=== PATIENT | female | born 1970 | race Caucasian/White ===

== ENCOUNTER 2022-10-06 06:37 | Emergency (ER) | payer OTHER ==
[2022-10-06] MEDS ORDERED: Lactated Ringers 1,000 ML IV ONE (08:07)
[2022-10-06] MEDS ORDERED: Sodium Chloride 0.9% 10 ML Syringe FLUSH PRN (08:07)
[2022-10-06] MEDS ORDERED: Prochlorperazine 10 MG/2 ML SDV IVPUSH ONE (08:08)
[2022-10-06] MEDS ORDERED: Dicyclomine 10 MG Cap PO ONE (08:08)
[2022-10-06] MEDS ORDERED: Azithromycin 250 MG Tab PO ONE (08:08)
[2022-10-06 08:23] LABS: BASOPHILS PERCENT AUTO 0.3 % (0.1-1.3); HEMATOCRIT 40.3 % (34.3-46.0); HEMOGLOBIN 13.7 g/dL (11.2-15.5); IMMATURE GRAN PERCENT AUTO 0.3 % (0.0-0.7); LYMPHOCYTES ABSOLUTE AUTO 0.52 K/uL (0.8-3.3); LYMPHOCYTES PERCENT AUTO 7.4 % (11.4-47.7); MEAN CORPUSCULAR HEMOGLOBIN 31.4 pg (31.6-35.5); MEAN CORPUSCULAR VOLUME 92.2 fL (81.4-99.0); MONOCYTES ABSOLUTE AUTO 0.38 K/uL (0.20-0.90); MONOCYTES PERCENT AUTO 5.4 % (3.3-12.6); NEUTROPHILS ABSOLUTE AUTO 6.08 K/uL (1.0-7.6); NEUTROPHILS PERCENT AUTO 86.6 % (40.0-78.1); PLATELET COUNT,PLT 172 K/uL (130-375); RED BLOOD CELL COUNT 4.37 M/uL (3.77-5.24)
[2022-10-06 08:30] LABS: BASOPHILS ABSOLUTE AUTO 0.02 K/uL (0.00-0.10); IMMATURE GRAN ABSOLUTE AUTO 0.02 K/uL (0.00-0.23)
[2022-10-06 08:42] LABS: CALCIUM 8.3 mg/dL (8.5-10.1); CREATININE 0.9 mg/dL (0.6-1.0); EST CRCL DRUG DOSING (CG) 66.9 mL/min; POTASSIUM,K 3.5 mmol/L (3.6-5.2)
[2022-10-06 08:45] LABS: ANION GAP 12.5 mmol/L (5.0-14.0)
== END 2022-10-06 10:13 | disposition home or self-care (01) ==
LOC: JP.ED 06:37
DX: R19.7 Diarrhea, unspecified (principal); E86.0 Dehydration; E03.9 Hypothyroidism, unspecified; Z86.16 Personal history of COVID-19; Z79.899 Other long term (current) drug therapy
CPT/HCPCS: 36415; 80048; 85025; 96361; 96374; 99284; A9270; J0780; J3490; J7120